=== PATIENT | female | born 1995 | race Hispanic/Latino ===

== ENCOUNTER 2018-04-20 13:31 | Day surgery (SDC) | payer OTHER ==
[2018-04-20 14:19] VITALS: BMI 24.5
[2018-04-20 15:40] LABS: Bilirubin Negative (Negative); Blood, Urine Negative (Negative); Clarity CLEAR (Clear); Glucose, Urine (Dipstick) Negative (Negative); Leukocyte Trace (Negative); Nitrite Negative (Negative); Protein, Urine (Dipstick) Negative (Neg-Trace); Specific Gravity, Urine 1.011 (1.002-1.036); Urobilinogen 0.2 mg/dL (0.2-1.0)
[2018-04-20 15:43] LABS: Bacteria/HPF None Seen HPF (None Seen); Hyaline Casts/LPF 0-3 HYALINE CAST LPF (0-3 Hyaline); Pathc Cast-AUWi Flag 0.14 (0-2.49); RBC/HPF 0-3 HPF (0-3); Squamous Epithelial 0-3 HPF (0-3); WBC/HPF 0-3 HPF (0-3)
[2018-04-20 16:32] LABS: #Eosinphils 0.1 thou/uL (0.0-0.7); #Lymphocytes 1.9 thou/uL (1.20-3.40); #Monocytes 0.6 thou/uL (0.11-0.59); #Neutrophils 8.6 thou/uL (1.40-6.50); %Basophils 0.3 % (0.0-1.0); %Eosinophils 1.2 % (0.0-10.0); %Lymphocytes 16.4 % (21.0-51.0); %Monocytes 5.5 % (0.0-10.0); %Neutrophils 76.6 % (42.0-75.0); Hemoglobin 11.7 g/dL (12.0-16.0); Mean Corpuscular HGB CONC 33.7 g/dL (32.0-36.0); Mean Corpuscular Hemoglobin 32.1 pg (27.0-31.0); Mean Corpuscular Volume 95.4 fL (78.0-98.0); Mean Platelet Volume 7.5 fL (7.4-10.4); Platelet Count 204 thou/uL (130-400); RBC Distribution Width 12.7 % (11.5-14.5); Red Blood Cell (RBC) Count 3.64 mill/uL (4.20-5.40); White Blood Cell (WBC) Count 11.3 thou/uL (4.8-10.8)
[2018-04-20 16:51] LABS: ALT (SGPT) 7 U/L (8-55); AST (SGOT) 14 U/L (5-34); Albumin 3.5 g/dL (3.5-5.0); Alkaline Phosphatase 74 U/L (40-150); Anion Gap 11 mmol/L (10-20); BUN (Urea Nitrogen) 6 mg/dL (7.0-18.7); Bilirubin, Total 0.2 mg/dL (0.2-1.2); Calc. Creatinine Clearance 159 mL/min (70-130); Calcium 9.3 mg/dL (7.8-10.44); Carbon Dioxide 22 mmol/L (22-29); Chloride 106 mmol/L (98-107); Estimated GFR-MDRD Greater than 90; Glucose 77 mg/dL (70-105); Potassium 3.8 mmol/L (3.5-5.1); Protein, Total 6.5 g/dL (6.0-8.3); Sodium 135 mmol/L (136-145)
--- NOTE | 2018-04-20 21:55 | SS ---
DATE OF ADMISSION: 04/20/2018 DATE OF DISCHARGE: 04/20/2018 LABOR AND DELIVERY TRIAGE NOTE REGULAR PROVIDER: Lizeth Rivera CNM EVALUATING PHYSICIAN: Ever Nguyen MD CHIEF COMPLAINT: Diarrhea over the last several days, vaginal discharge. HISTORY OF PRESENT ILLNESS: Ms. Alexander is a 23-year-old , G2, P1-0-0-1 with an estimated date of confinement of 07/16/2018, who presents complaining of diarrhea over the last several days along with occasional cramping and vaginal discharge. She denies vaginal bleeding or ruptured membranes. She states that she has had 2 loose stools today. PAST OBSTETRICAL HISTORY: Includes vaginal delivery at term of 6 pounds 4 ounces infant. PAST MEDICAL HISTORY: None. PAST SURGICAL HISTORY: None. CURRENT MEDICATIONS: vitamins. ALLERGIES: NO KNOWN ALLERGIES. PHYSICAL EXAMINATION: VITAL SIGNS: Stable and she is afebrile in triage. GENERAL: She is very well appearing and in no acute distress. ABDOMEN: Soft, nontender, and gravid with no guarding or rebound. PELVIS: Deferred. heart rate tracing is stable. It is reassuring. There are no D cells. No uterine contractions are seen. LABORATORY DATA: CBC shows a white count of 11.3, hemoglobin and hematocrit of 11.7 and 34.7 respectively, and a platelet count of 204. Chemistries; sodium 135, potassium 3.8, BUN 6, creatinine 0.5, total bilirubin 0.2, AST and ALT are 14 and 7 respectively. Alkaline phosphatase is 74. Urinalysis is clear with a specific gravity of 1.011 with negative protein, negative glucose, negative ketones, negative blood and negative nitrites. Microscopic urinalysis shows no bacteria seen. VP3 testing is negative for Kendra, Trichamonas and Gardnerella. ASSESSMENT: 1. 27 and 4/7th week intrauterine . 2. No evidence of labor. 3. Diarrhea with normal laboratory work. 4. No evidence of vaginal infection at this time. PLAN: The patient will be discharged to home. The patient was told to keep herself well hydrated at home and that she can take some [id number] Lomotil for any diarrhea that she has moving forward. She was given complete labor precautions. She was discharged home in good condition. Job ID: [id number] [facility]
== END 2018-04-20 17:10 | disposition home health service (06) ==
LOC: L&D/OP 13:31
PROVIDERS: ATTEND Student in an Organized Health Care Education/Training Program
DX: O99.89 Other specified diseases and conditions complicating pregnancy, childbirth and the puerperium (principal); R19.7 Diarrhea, unspecified; Z3A.27 27 weeks gestation of pregnancy
CPT/HCPCS: 36415; 80053; 81003; 81015; 85025; 87480; 87510; 87660; 99284

== ENCOUNTER 2018-05-19 15:46 | Day surgery (SDC) | payer OTHER ==
[2018-05-19 16:25] VITALS: BMI 26.4
[2018-05-19 17:12] LABS: Amnisure Test No Membranes Rupture (No Rupture)
[2018-05-19 17:13] LABS: Amnisure Internal Control QC ACCEPTABLE (ACCEPTABLE)
--- NOTE | 2018-05-19 17:40 | PDOC.LDHP ---
Labor and Delivery H&P Chief complaint: loss of fluid HPI: 23 y/o at 31w5d, patient of Aniya Rivera, presents with a large gush of fluid after getting out of the shower. Denies VB, ctx, or decreased FM. ROS neg for HEENT, cv, pulm, gi, gu, neuro, psych, skin, musculoskeletal or constitutional symptoms other than mentioned above. OB History Details: 1 prior term Current complications: none Past Medical History: Being treated for BV Current medications: pre- vitamins, other (Clindamycin) Previous surgical history: none Allergies/Adverse Reactions: Allergies Allergy/AdvReac Type Severity Reaction Status Date / Time No Known Allergies Allergy Verified 04/20/18 14:12 Social history: none - Physical Exam Vital signs reviewed and normal: yes General: NAD, resting Lungs: nonlabored breathing Abdomen: gravid Extremeties: no edema FHT: category 1 (140s, mod variability, + accels, no decels) [place] contractions every: irritability, resolved with time - Vaginal Exam cm dilated: 0 (visual) Effacement: 0% Station: -3 - Assessment 23 y/o at 31w5d with no e/o SROM. Amnisure negative. Valsalva neg. status reassuring with reactive NST. - Plan -: D/c home with precautions. VP3 pending. Keep all appointments.
== END 2018-05-19 17:40 | disposition home health service (06) ==
LOC: L&D/OP 15:46
PROVIDERS: ATTEND Advanced Practice Midwife
DX: O99.89 Other specified diseases and conditions complicating pregnancy, childbirth and the puerperium (principal); N89.8 Other specified noninflammatory disorders of vagina; Z3A.31 31 weeks gestation of pregnancy
CPT/HCPCS: 84112; 87480; 87510; 87660; 99283

== ENCOUNTER 2018-07-17 00:51 | Inpatient (IN) | payer OTHER ==
[2018-07-17 01:20] VITALS: BMI 28.3
[2018-07-17] MEDS ORDERED: Ondansetron PF 4 MG/2 ML Vial IVP PRN ×3 (01:42→08:10)
[2018-07-17] MEDS ORDERED: Acetaminophen 500 MG TAB PO PRN (01:42)
[2018-07-17] MEDS ORDERED: Promethazine HCl 25 MG/ML VIAL IM PRN ×2 (01:42→03:21)
[2018-07-17] MEDS ORDERED: Butorphanol Tartrate 1 MG/ML VIAL SLOW IVP PRN (01:42)
[2018-07-17] MEDS ORDERED: NS w/ Oxytocin 10 units 500 ML IV SCH ×2 (01:45)
[2018-07-17] MEDS ORDERED: NS / Oxytocin 40 units/1000ml 1,000 ML IV SCH ×2 (01:45→08:10)
[2018-07-17] MEDS ORDERED: Lidocaine 1% (PF) 30 ML VIAL SC PRN (01:45)
[2018-07-17] MEDS ORDERED: Ibuprofen 800 MG TAB PO PRN (01:45)
[2018-07-17] MEDS ORDERED: Misoprostol 200 MCG TAB RC PRN (01:45)
[2018-07-17 02:12] LABS: Hemoglobin 13.2 g/dL (12.0-16.0); Mean Corpuscular HGB CONC 33.8 g/dL (32.0-36.0); Mean Corpuscular Hemoglobin 30.9 pg (27.0-31.0); Mean Corpuscular Volume 91.5 fL (78.0-98.0); Mean Platelet Volume 8.2 fL (7.4-10.4); Platelet Count 183 thou/uL (130-400); RBC Distribution Width 12.7 % (11.5-14.5); Red Blood Cell (RBC) Count 4.27 mill/uL (4.20-5.40); White Blood Cell (WBC) Count 12.1 thou/uL (4.8-10.8)
[2018-07-17] MEDS: Lactated Ringer's 1,000 ML IV SCH ×2 (02:23→04:35)
[2018-07-17] MEDS ORDERED: Fentanyl 4 mcg/Bup 0.1% Cadd 100 ML ONE (02:30)
[2018-07-17 02:52] LABS: HBSAg Index 0.29 S/CO (0-0.99); Hep B Surf Ag Non-Reactive S/CO (NonReactive)
[2018-07-17 03:19] LABS: Syphilis Antibody Nonreactive (Nonreactive); Syphilis Antibody Index 0.02 S/CO (<1.00 Non-Reactive)
[2018-07-17] MEDS ORDERED: ePHEDrine/0.9% NaCl/PF SYRINGE 50 mg/10 ml SLOW IVP PRN (03:21)
[2018-07-17] MEDS ORDERED: Lactated Ringer's 500 ML IV PRN (03:21)
[2018-07-17] MEDS ORDERED: diphenhydrAMINE 50 MG/ML VIAL IVP PRN (03:21)
[2018-07-17] MEDS ORDERED: Eucerin (Mineral Oil/Petrolatum,White) 30 gm Jar TOP PRN (03:21)
[2018-07-17] MEDS ORDERED: Acetaminophen 325 MG TAB PO PRN (03:21)
[2018-07-17] MEDS ORDERED: Naloxone HCl 0.4 mg/ml Vial IVP PRN ×2 (03:21)
[2018-07-17] MEDS ORDERED: Fentanyl 4 mcg/Bupivacaine 0.1% Cassette 100 ML EPIDURAL SCH (03:30)
[2018-07-17] MEDS ORDERED: Communication Order-Pharmacy FS SCH (03:30)
--- NOTE | 2018-07-17 06:27 | PDOC.LDHP ---
Labor and Delivery H&P Chief complaint: loss of fluid HPI: Reports large loss of clear fluid at 11pm last night. She was not vamshi. Current gestational age (weeks): 40 Due date: 07/15/18 Dating criteria: first trimester ultrasound Grav: 2 Para: 1 Current complications: none Abnormal US findings: No Current medications: pre- vitamins Previous surgical history: none Allergies/Adverse Reactions: Allergies Allergy/AdvReac Type Severity Reaction Status Date / Time No Known Allergies Allergy Verified 04/20/18 14:12 Social history: none - Physical Exam Vital signs reviewed and normal: yes General: NAD Heart: RRR Lungs: nonlabored breathing Abdomen: gravid Extremeties: trace edema FHT: category 2 - Vaginal Exam cm dilated: 3 Effacement: 50% Station: -1 - OB Labs Blood type: A RH: positive Antibody Screen: negative HIV: negative RPR: negative HEPSAg: negative 1 hour GCT: negative GBS: negative Urine drug screen: negative Rubella: immune - Assessment L&D Assessment: term rupture in membranes - Plan Plan: admit to L&D
--- NOTE | 2018-07-17 06:58 | PDOC.OPDEL ---
OB Operative/Delivery Note Delivery Dr/Surgeon: olga ly Pre-Delivery Diagnosis: active labor, ruptured membrane Procedure/Post Delivery Dx: spontaneous vaginal delivery Weeks gestation: 40 Anesthesia: epidural - Findings A Sex: female - 1 min: 8 - 5 min: 9 - Additional Findings/Plan Placenta delivered: spontaneous Repaired Obstetrical Laceration: none Estimated blood loss: 750mL see nursing notes for QBL Compilations/Other Findings: Brisk uterine bleeding post delivery. Actively managed with bimanual compression and IV Pitocin. Post delivery plan: routine recovery
[2018-07-17] MEDS ORDERED: Methylergonovine 0.2 MG/ML VIAL ONE (07:14)
[2018-07-17] MEDS ORDERED: Bupivacaine/Epinephrine 0.25% 30 ML VIAL ONE (08:00)
[2018-07-17] MEDS ORDERED: Misoprostol 200 MCG TAB VAG PRN (08:10)
[2018-07-17] MEDS ORDERED: Methylergonovine 0.2 MG TAB PO PRN (08:10)
[2018-07-17] MEDS ORDERED: Benzocaine-Menthol 82.5 ML CAN TOP PRN (08:10)
[2018-07-17] MEDS ORDERED: Bisacodyl 10 MG SUPP PR PRN (08:10)
[2018-07-17] MEDS ORDERED: Milk Of Magnesia 30 ML UDCUP PO PRN (08:10)
[2018-07-17] MEDS ORDERED: Lanolin Ointment 7 GM TUBE TOP PRN (08:10)
[2018-07-17] MEDS ORDERED: HYDROcodone/Acetaminophen 5/325 mg Tablet PO PRN ×2 (08:10)
[2018-07-17] MEDS ORDERED: Methylergonovine 0.2 MG/ML VIAL IM PRN (08:10)
[2018-07-17] MEDS: Docusate Calcium (SURFAK) 240 MG CAP PO SCH ×2 (09:30→21:44)
[2018-07-17] MEDS: Prenatal Vitamin 1 TAB PO SCH (09:30)
[2018-07-17] MEDS: Ibuprofen 800 MG TAB PO SCH ×2 (15:34→21:44)
[2018-07-17] MEDS: Ferrous Sulfate 325 MG TAB PO SCH (17:10)
[2018-07-18 05:18] LABS: Hemoglobin 10.4 g/dL (12.0-16.0); Mean Corpuscular HGB CONC 34.6 g/dL (32.0-36.0); Mean Corpuscular Hemoglobin 32.4 pg (27.0-31.0); Mean Corpuscular Volume 93.8 fL (78.0-98.0); Mean Platelet Volume 8.4 fL (7.4-10.4); Platelet Count 158 thou/uL (130-400); RBC Distribution Width 12.6 % (11.5-14.5); Red Blood Cell (RBC) Count 3.22 mill/uL (4.20-5.40); White Blood Cell (WBC) Count 14.3 thou/uL (4.8-10.8)
[2018-07-18] MEDS: Ibuprofen 800 MG TAB PO SCH ×2 (05:20→14:49)
--- NOTE | 2018-07-18 07:15 | PDOC.PP ---
Post Progress Note Post Day #: 2 PO intake tolerated: yes Flatus: yes Ambulation: yes Vital Signs (12 hours) Temp Pulse Resp BP Pulse Ox 07/18/18 05:20 98.5 F 84 16 117/57 L 07/17/18 23:20 97.9 F 78 16 116/55 L 07/17/18 21:00 98.2 F 96 16 113/54 L 97 Weight Weight 150 lb - Physical Examination General: NAD Cardiovascular: no m/r/g, RRR Respiratory: clear to auscultation bilaterally, non-labored breathing Abdominal: + bowel sounds, lochia Extremities: negative homans (B) Neurological: no gross focal deficits Psychiatric: A&Ox3, normal affect Result Diagrams: 07/18/18 04:22 Additional Labs: Post Labs Blood Type A POSITIVE 07/17/18 03:13 Hep Bs Antigen Non-Reactive S/CO (NonReactive) 07/17/18 02:05 - Assessment/Plan doing well dc home
[2018-07-18] MEDS: Ferrous Sulfate 325 MG TAB PO SCH (07:35)
[2018-07-18] MEDS ORDERED: Adacel (T-DAP) 0.5 ML SYRINGE IM ONE (09:00)
[2018-07-18] MEDS ORDERED: Varicella virus, LIVE 0.5 ML VIAL SC ONE (09:00)
[2018-07-18] MEDS ORDERED: Measles/Mumps/Rubella 10 MCG/0.5 ML VIAL SC ONE (09:00)
[2018-07-18 09:05] VITALS: BP 113/69; TEMP 98
[2018-07-18] MEDS: Docusate Calcium (SURFAK) 240 MG CAP PO SCH (10:18)
[2018-07-18] MEDS: Prenatal Vitamin 1 TAB PO SCH (10:18)
== END 2018-07-18 15:25 | disposition home or self-care (01) | DRG 807 ==
LOC: L&D/OP 00:51 → L&D 02:28 → 3SW 14:49
PROVIDERS: ADMIT Student in an Organized Health Care Education/Training Program; ATTEND Student in an Organized Health Care Education/Training Program
PROC: 10E0XZZ Delivery of Products of Conception, External Approach (ICD-10-PCS; principal; 2018-07-17)
DX: O70.0 First degree perineal laceration during delivery (principal); Z37.0 Single live birth; Z3A.40 40 weeks gestation of pregnancy
CPT/HCPCS: 36415; 51702; 85027; 86780; 86850; 86900; 86901; 87340; 99285; J2210; J2590

== ENCOUNTER 2024-03-18 12:32 | Outpatient (CLI) | payer OTHER | END 2024-03-18 12:33 | disposition home or self-care (01) | LOC: BICULT 12:32 | DX: Z33.1 Pregnant state, incidental (principal) | CPT/HCPCS: 76805 ==